=== PATIENT | female | born 1985 | race Caucasian/White ===

== ENCOUNTER 2019-02-12 23:03 | Emergency (ER) | payer MEDICAID, OTHER ==
[~2019-02-12] VITALS: Ht 172.7 cm; Wt 63.5 kg
[2019-02-12 23:39] VITALS: BP 114/61
[2019-02-13] MEDS ORDERED: IBUPROFEN 800 MG TAB PO ONE (02:45)
[2019-02-13] MEDS ORDERED: HYDROcodone-ACET 10/325MG TAB PO ONE (02:45)
== END 2019-02-13 02:48 | disposition home or self-care (01) ==
LOC: ER 23:11
DX: S60.212A Contusion of left wrist, initial encounter (principal); S66.912A Strain of unspecified muscle, fascia and tendon at wrist and hand level, left hand, initial encounter; V29.40XA Motorcycle driver injured in collision with unspecified motor vehicles in traffic accident, initial encounter; Y93.89 Activity, other specified; Y92.89 Other specified places as the place of occurrence of the external cause; Y99.8 Other external cause status
CPT/HCPCS: 29125; 73110; 73130